=== PATIENT | male | born 1945 | race Caucasian/White ===

== ENCOUNTER 2022-06-20 09:46 | Emergency (ER) | payer MEDICARE, SELFPAY ==
[2022-06-20] VITALS (20 sets, daily range): BP systolic 138–165; BP diastolic 85–108; PULSE 66–79; RESP 18; TEMP 36.1–36.5; O2SAT 92–98; BMI 27.6
--- NOTE | 2022-06-20 09:55 | ED.GENADULT ---
HPI - General Adult General Time Seen by Provider: 09:55 Date Seen: 06/20/22 Chief complaint: Extremity Pain/Injury, Lower Stated complaint: fall Time Seen by Provider: 06/20/22 09:48 Source: patient and RN notes reviewed Mode of arrival: ambulatory Limitations: no limitations History of Present Illness HPI narrative: 77 year old male who comes in today with left leg injury. He slipped on the stairs and fell, did not hit his head or pass out, but had pain in his left lower leg and unable to walk, called EMS. Related Data Home Medications Medication Instructions Recorded Confirmed finasteride 5 mg tablet 5 mg PO DAILY 01/30/22 06/20/22 tamsulosin 0.4 mg capsule 0.4 mg PO DAILY 01/30/22 06/20/22 Previous Rx's Medication Instructions Recorded losartan 50 mg tablet 50 mg PO DAILY #90 tabs 01/30/22 sotalol 80 mg tablet 80 mg PO BID #180 tabs 01/30/22 apixaban 5 mg tablet 5 mg PO BID #180 tabs 06/05/22 valacyclovir 1 gram tablet 1,000 mg PO BID 7 days #14 tabs 06/05/22 Allergies Allergy/AdvReac Type Severity Reaction Status Date / Time Penicillins Allergy Verified 06/20/22 10:53 Review of Systems Status of ROS: Reports: 10 or more systems reviewed and unremarkable except as noted in History and below PFSH PFS Medical History Actinic keratosis Atrial fibrillation Epistaxis History of cardioversion HTN (hypertension) Surgical History History of knee surgery Family History Mother Breast cancer Cardiovascular disease Dementia Father Type 2 diabetes mellitus Social History Narrative: has 2 children no history of alcohol use nonsmoker Smoking Status: Never smoker Do you use any of these nicotine containing products: None Second hand tobacco smoke exposure: No How often do you have a drink containing alcohol: monthly or less AUDIT-C Alcohol total score: 1 Non-prescribed substance use: denies use service: No Exam Narrative: Exam Narrative: General: Well-developed and well-nourished, no acute distress Head: Atraumatic and normocephalic Eyes: Pupils are equal reactive, extraocular motions intact, conjunctiva clear ENT: External nose and ears are normal, posterior pharynx without erythema or exudate Neck: No midline cervical tenderness, full spontaneous range of motion the neck, trachea midline, no adenopathy Heart: Regular rate and rhythm no murmurs or thrills Lungs: Clear to auscultation bilaterally without wheezes or crackles Abdomen: Soft, nontender, nondistended with active bowel sounds Musculoskeletal: Swelling of the left lower leg with deformity of the distal 3rd. 1 cm laceration of the anterior medial lower leg. Distal sensation and pulses intact. Neurologic: Awake, alert, and oriented x3, no gross focal neurologic deficits, cranial nerves intact as tested Psych: Mood and affect are appropriate Skin: No rashes Const: Vital Signs, click to edit/add: Vital Signs - 24 hr 06/20/22 09:48 06/20/22 10:04 06/20/22 10:44 Temperature 97.0 F L Pulse Rate 67 75 Pulse Rate [Right Pulse Oximeter] 70 Respiratory Rate 18 Blood Pressure 153/92 H Blood Pressure [Ri ght Upper Arm] 156/100 H Pulse Oximetry 97 98 97 Oxygen Delivery Me thod Room Air 06/20/22 10:45 06/20/22 11:11 06/20/22 11:20 Temperature Pulse Rate 71 74 73 Pulse Rate [Right Pulse Oximeter] Respiratory Rate Blood Pressure Blood Pressure [Ri ght Upper Arm] Pulse Oximetry 96 96 96 Oxygen Delivery Me thod 06/20/22 11:22 06/20/22 11:40 06/20/22 11:43 Temperature 97.7 F Pulse Rate 73 73 77 Pulse Rate [Right Pulse Oximeter] Respiratory Rate Blood Pressure 138/85 152/85 H Blood Pressure [Ri ght Upper Arm] Pulse Oximetry 96 97 96 Oxygen Delivery Me thod 06/20/22 12:00 06/20/22 12:02 06/20/22 12:03 Temperature Pulse Rate 71 74 70 Pulse Rate [Right Pulse Oximeter] Respiratory Rate Blood Pressure 153/95 H Blood Pressure [Ri ght Upper Arm] Pulse Oximetry 94 96 95 Oxygen Delivery Me thod 06/20/22 12:22 06/20/22 12:25 06/20/22 12:40 Temperature Pulse Rate 66 77 Pulse Rate [Right Pulse Oximeter] Respiratory Rate Blood Pressure 151/93 H Blood Pressure [Ri ght Upper Arm] Pulse Oximetry 98 96 Oxygen Delivery Me thod 06/20/22 12:42 06/20/22 13:00 06/20/22 13:02 Temperature Pulse Rate 79 66 67 Pulse Rate [Right Pulse Oximeter] Respiratory Rate Blood Pressure 138/87 Blood Pressure [Ri ght Upper Arm] Pulse Oximetry 96 94 92 Oxygen Delivery Me thod 06/20/22 13:22 Temperature 97.7 F Pulse Rate Pulse Rate [Right Pulse Oximeter] Respiratory Rate Blood Pressure 165/97 H Blood Pressure [Ri ght Upper Arm] Pulse Oximetry Oxygen Delivery Me thod Course Course Hospital Course: Patient seen and examined on arrival. Fall today, obvious deformity of the left lower leg. There is also an overlying laceration in this area consistent with open fracture. Pressure was applied with improvement of bleeding. A Coban dressing was placed to apply pressure. The fracture was reduced with traction and a long-leg stirrup splint was placed. Will discuss with Orthopedics, antibiotics will be ordered. Reevaluation(s) Reevaluation #1: Ancef IV is ordered after discussion with Orthopedics. Will try to transfer the patient for further evaluation treatment. Patient requests [facility]. Will check with them to see if they have space and will take patient. Time: 10:41 Reevaluation #2: No beds at [facility]. Patient requests transfer to [facility] in [facility] as his spouse had hip replacements done there and was quite happy with her experience. Unfortunately, no beds available at [facility], no beds available at at [facility]. Time: 10:57 Reevaluation #3: Care discussed with Dr. Graham, [facility] who accepts the patient for transfer. Updated patient and spouse. Time: 11:44 Additional Reevaluation(s): 1:00 PM patient rechecked, resting comfortably. Dorsalis pedis pulse is still palpable on left, sensation intact and able the foot without pain. No obvious bleeding on splint or SHRUTI. Consultations Consultation #1: Care discussed with Dr. Rosado. Orthopedic surgery who feels patient should be transferred to a higher level of care for his surgery. Time: 10:30 Vital Signs Vital signs: Initial Vital Signs Temperature 97.0 F L 06/20/22 09:48 Temperature Source Temporal Artery Scan 06/20/22 09:48 Pulse Rate 70 06/20/22 09:48 Respiratory Rate 18 06/20/22 09:48 Blood Pressure 156/100 H 06/20/22 09:48 Blood Pressure Mean 118 06/20/22 09:48 Blood Pressure Position Sitting 06/20/22 09:48 Pulse Oximetry 97 06/20/22 09:48 Oxygen Delivery Method 06/20/22 09:48 Vital Signs Temperature 97.0 F L 06/20/22 09:48 Pulse Rate 70 06/20/22 09:48 Respiratory Rate 18 06/20/22 09:48 Blood Pressure 156/100 H 06/20/22 09:48 Pulse Oximetry 97 06/20/22 09:48 Oxygen Delivery Method 06/20/22 09:48 Temperature 97.7 F 06/20/22 13:22 Pulse Rate 67 06/20/22 13:02 Respiratory Rate 18 06/20/22 09:48 Blood Pressure 165/97 H 06/20/22 13:22 Pulse Oximetry 92 06/20/22 13:02 Oxygen Delivery Method 06/20/22 09:48 Medical Decision Making Medical Records Medical records reviewed: Yes I reviewed the patient's medical records Lab Data Lab results reviewed: Yes I reviewed the patient's lab results Labs: Lab Results 06/20/22 06/20/22 06/20/22 Range/Units 10:30 10:30 10:36 WBC 8.66 (4.50-11.00) K/uL RBC 4.67 (4.30-5.90) m/uL Hgb 14.5 (13.5-17.5) gm/dL Hct 43.3 (37.0-53.0) % MCV 93 (80-100) fL MCH 31 (26-34) pg MCHC 34 (32-36) gm/dL RDW Coeff of Rayo 13.1 (11.5-15.5) % Plt Count 198 (140-440) K/uL Neut % (Auto) 74.7 H (42.0-72.0) % Lymph % (Auto) 14.1 L (20-44) % [place] % (Auto) 7.5 (0.0-11.0) % Eos % (Auto) 3.3 (0.0-7.0) % Baso % (Auto) 0.3 (0.0-3.0) % Neut # (Auto) 6.50 (1.7-7.0) K/uL Lymph # (Auto) 1.20 (0.90-2.90) K/uL [place] # (Auto) 0.60 (0.00-0.90) K/UL Eos # (Auto) 0.29 (0.00-0.50) K/uL Baso # (Auto) 0.03 (0.00-0.30) K/uL Sodium 140 (135-149) mmol/L Potassium 4.1 (3.6-5.1) mmol/L Chloride 107 (96-114) mmol/L Carbon Dioxide 26 (20-32) mmol/L BUN 16 (7-30) mg/dL Creatinine 0.8 (0.5-1.5) mg/dL Estimated Creat Clear 70.78 Estimated GFR 91 ml/min Glucose 129 H (60-115) mg/dL Calcium 9.3 (8.4-10.6) mg/dL SARS-CoV-2 (PCR) Negative SARS-CoV-2 (Negative) Imaging Data Left tib-fib: Attestation: I have reviewed the pertinent imaging results. My impression: Displaced distal tibia and fibular fracture with proximal fibular fracture as well Radiologist's impression: Bones: There are transversely oriented, displaced fractures and distal tibial and fibular metadiaphysis. The distal tibial fracture fragment is displaced approximately 1 shaft width laterally and dorsally. There is also a minimally displaced oblique fracture of the proximal aspect of the fibula. Joint spaces: Advanced knee arthrosis. CT scan - head: Attestation: I have reviewed the pertinent imaging results. My impression: No acute hemorrhage ECG Data Attestation: I personally reviewed and interpreted this ECG as follows: Prior ECG tracings: not available for review Interpretation: Performed at 10:39 a.m. demonstrates sinus rhythm with sinus rhythm at a rate 73, no acute ST elevations or depressions, normal intervals, normal axis, no prior for comparison. Discharge Plan Discharge Clinical Impression: Open fracture of left fibula and tibia, Atrial fibrillation, Anticoagulant long-term use Patient Disposition: Xfer [facility] Prescriptions: No Action apixaban 5 mg tablet 5 mg PO BID Qty: 180 3RF valacyclovir 1 gram tablet 1,000 mg PO BID 7 Days Qty: 14 2RF Rx Instructions: For treatment of outbreak finasteride 5 mg tablet 5 mg PO DAILY tamsulosin 0.4 mg capsule 0.4 mg PO DAILY sotalol 80 mg tablet 80 mg PO BID Qty: 180 2RF losartan 50 mg tablet 50 mg PO DAILY Qty: 90 3RF Stand Alone [facility] Inst[facility]
--- NOTE | 2022-06-20 10:04 | XR_ITS ---
Patient: MARCELLO LABOY Facility:?[facility] Patient ID:?[id number] Site Patient ID:?[id number]. Site :?[id number] Study:?XRay-Extremity Left TIB/FIB 2V-06/20/2022 10:19:20 AM Ordering Physician:Scralett Benitez Final Report: Indication: Trauma. Technique: views. Comparison: None. Findings/Impression: Bones: There are transversely oriented, displaced fractures and distal tibial and fibular metadiaphysis. The distal tibial fracture fragment is displaced approximately 1 shaft width laterally and dorsally. There is also a minimally displaced oblique fracture of the proximal aspect of the fibula. Joint spaces: Advanced knee arthrosis. Soft tissues: Soft tissue swelling. Dictated by Reji Waller MD @ 06/20/2022 10:48:21 AM ----- ADDENDUM ----- TECHNIQUE: Two views left tibia and fibula. Indications: Pain Dictated by Reji Waller MD @ Jun 20 2022 10:48AM Signed by:?Reji Waller MD @06/20/2022 10:48:21 AM (Electronic Signature)
--- NOTE | 2022-06-20 10:42 | CRLHL7_ITS ---
For Patients: As a result of the Century Cures Act, medical imaging exams and procedure reports are released immediately into your electronic medical record. You may view this report before your referring provider. If you have questions, please contact your health care provider. INDICATION: Fall TECHNIQUE: CT head without contrast. COMPARISON: None FINDINGS: CSF spaces: Within normal limits for age. Brain parenchyma: The beltrán-white differentiation is normal. No sign of mass, hemorrhage, or midline shift. Skull base and calvarium: The visualized paranasal sinuses and mastoid air cells demonstrate no acute or significant findings. The visualized orbits are grossly unremarkable. No skull fractures. IMPRESSION: Unremarkable noncontrast head CT. Dictated by Hermilo Sharma MD @ 06/20/2022 11:44:30 AM Please note that all CT scans at this facility use dose modulation, iterative reconstruction, and/or weight-based dosing when appropriate to reduce radiation dose to as low as reasonably achievable. Dictated by: Hermilo Sharma MD @ 06/20/2022 11:44:34 (Electronically Signed)
[2022-06-20 10:50] LABS: Basophils Absolute Auto 0.03 K/uL (0.00-0.30); Basophils Percent Auto 0.3 % (0.0-3.0); Eosinophils Absolute Auto 0.29 K/uL (0.00-0.50); Eosinophils Percent Auto 3.3 % (0.0-7.0); Hematocrit 43.3 % (37.0-53.0); Hemoglobin* 14.5 gm/dL (13.5-17.5); Immature Granulocytes Abs Auto 0.01 K/uL (0.00-0.30); Immature Granulocytes Pct Auto 0.1 %; Lymphocytes Percent Auto 14.1 % (20-44); Mean Corpuscular HGB Conc 34 gm/dL (32-36); Mean Corpuscular Hemoglobin 31 pg (26-34); Mean Corpuscular Volume 93 fL (80-100); Monocytes Percent Auto 7.5 % (0.0-11.0); Neutrophils Percent Auto 74.7 % (42.0-72.0); Platelet Count* 198 K/uL (140-440); RDW Coefficient of Variation % 13.1 % (11.5-15.5); Red Blood Count 4.67 m/uL (4.30-5.90); White Blood Count* 8.66 K/uL (4.50-11.00)
[2022-06-20 10:52] LABS: Slide Review Reflex No
[2022-06-20] MEDS: LORazepam 2 MG/ML inj 0.3 MG IVP (10:56)
[2022-06-20] MEDS: CEFAZOLIN 1 GM in 0.9 % SODIUM CHLORIDE Mini-bag 100 ML IVPB (10:59)
[2022-06-20 11:10] LABS: Chloride* 107 mmol/L (96-114)
[2022-06-20 11:11] LABS: Potassium* 4.1 mmol/L (3.6-5.1); Sodium* 140 mmol/L (135-149)
[2022-06-20 11:13] LABS: Carbon Dioxide* 26 mmol/L (20-32); Creatinine* 0.8 mg/dL (0.5-1.5); Est. Creatinine Clearance* 70.78; Estimated Glomerular Filt Rate 91 ml/min
[2022-06-20 11:14] LABS: Blood Urea Nitrogen* 16 mg/dL (7-30); Calcium* 9.3 mg/dL (8.4-10.6); Glucose* 129 mg/dL (60-115)
[2022-06-20 11:57] LABS: SARS PCR* Negative SARS-CoV-2 (Negative)
--- NOTE | 2022-06-20 12:26 | PC.NURSE ---
Patient voided 225cc of clear urine. Continues to deny need for pain meds. Repositions self on cot. Toes are cold- warm sock applied. Has feeling in toes and able to wiggle them.
--- NOTE | 2022-06-20 14:13 | PC.NURSE ---
Patient transported to [facility]. Report given to allergy nurse. All questions answered. All belongings sent with patient and with . will wait for phone call from [facility]. Patient again refused pain medications for route.
== END 2022-06-20 14:16 | disposition home or self-care (01) ==
PROVIDERS: Emergency Provider Family Medicine; PCP Family Medicine
DX: S82.432B Displaced oblique fracture of shaft of left fibula, initial encounter for open fracture type I or II (principal); S82.302B Unspecified fracture of lower end of left tibia, initial encounter for open fracture type I or II; W10.9XXA Fall (on) (from) unspecified stairs and steps, initial encounter; Z79.01 Long term (current) use of anticoagulants
CPT/HCPCS: 29515; 36415; 70450; 73590; 80048; 85025; 87635; 93005; 96365; 96375; 99284; 99285; J0690; J2060

== ENCOUNTER 2023-09-10 10:39 | Emergency (ER) | payer MEDICARE, SELFPAY ==
[2023-09-10 10:51] VITALS: BP 168/78; PULSE 68; RESP 18; TEMP 36.6; O2SAT 97
--- NOTE | 2023-09-10 12:12 | ED.GENADULT ---
HPI - General Adult General Chief complaint: Epistaxis/Nosebleed Stated complaint: bloody nose Time Seen by Provider: 09/10/23 12:12 History of Present Illness HPI narrative: Patient had a nose bleed that started this morning around 9am and lasted for about 20-25 minutes. He is on Eliquis. He is not actively bleeding. He called clinic and was told to come to ED. Flying on a plane tomorrow and wants to make sure that it is ok to 78-year-old man presenting to the emergency department with concern of bloody nose. Actually was bleeding more last week. Does have a history of cautery once? prior to that. Managed to gain control this morning with pressure. Had called into the clinic and was told to come to the emergency department. They are flying tomorrow and want to be sure that it is OK to fly. He's not feeling lightheaded or short of breath. No particular trauma, though acknowledges that picking in the past can be a trigger. Takes Eliquis. Related Data Home Medications Medication Instructions Recorded Confirmed finasteride 5 mg tablet 5 mg PO DAILY 01/30/22 08/20/23 tamsulosin 0.4 mg capsule 0.4 mg PO DAILY 01/30/22 08/20/23 Previous Rx's Medication Instructions Recorded losartan 50 mg tablet 50 mg PO DAILY #90 tabs 02/12/23 sotalol 80 mg tablet 80 mg PO BID #180 tabs 02/12/23 apixaban 5 mg tablet (Eliquis) 5 mg PO BID #180 tabs 08/20/23 Allergies Allergy/AdvReac Type Severity Reaction Status Date / Time Penicillins Allergy Verified 08/20/23 08:39 Review of Systems Status of ROS: Reports: 6 or more systems reviewed and unremarkable except as noted in History and below [facility] Medical History Actinic keratosis ?L57.0 - Actinic keratosis (ICD-10) History of cardioversion ?Z98.890 - Other specified postprocedural states (ICD-10) Epistaxis ?R04.0 - Epistaxis (ICD-10) Surgical History H/O cardiac radiofrequency ablation ?Z98.890 - Other specified postprocedural states (ICD-10) History of knee surgery ?Z98.890 - Other specified postprocedural states (ICD-10) Family History Mother Breast cancer Cardiovascular disease Dementia Father Type 2 diabetes mellitus Social History Narrative: has 2 children no history of alcohol use nonsmoker What is your current living situation?: I presently have a place to live In the past 12 months, utilities in danger of being shut off: no In past 12 months, lack of transportation kept you from medical appts, meetings, work, or getting things needed for daily living: no In the past 12 mos, have been you worried that your food would run out before you had money to buy more?: never true In the past 12 mos, the food you bought just didn't last and you didn't have money to buy more?: never true Smoking Status: Never smoker Do you use any of these nicotine containing products: None Second hand tobacco smoke exposure: No How often do you have a drink containing alcohol: monthly or less AUDIT-C Alcohol total score: 1 Non-prescribed substance use: denies use How often does anyone, including family, friends and others, physically hurt you: never How often does anyone, including family, friends and others, insult or talk down to you: never How often does anyone, including family, friends and others, threaten you with harm: never How often does anyone, including family, friends and others, scream or curse at you: never Little interest or pleasure in doing things: not at all Feeling down, depressed, or hopeless: not at all service: No Exam Narrative: Exam Narrative: Very pleasant with good energy. Breathing easily. Trace dried blood at both nares. There is no posterior oropharyngeal bleeding. Blood pressure is noted to be a little elevated on arrival. The site of bleeding appears to have been on the left medial nasal septum relatively anterior. Singular point it looks to be lightly clotting. Const: Vital Signs, click to edit/add: Vital Signs - 24 hr 09/10/23 10:51 Temperature 97.9 F Pulse Rate [Pulse Oximeter] 68 Respiratory Rate 18 Blood Pressure [Ri ght Upper Arm] 168/78 H Pulse Oximetry 97 Oxygen Delivery Me thod Room Air Documenting provider has reviewed patient's vital signs: yes Course Vital Signs Vital signs: Initial Vital Signs Temperature 97.9 F 09/10/23 10:51 Temperature Source Temporal Artery Scan 09/10/23 10:51 Pulse Rate 68 09/10/23 10:51 Respiratory Rate 18 09/10/23 10:51 Blood Pressure 168/78 H 09/10/23 10:51 Blood Pressure Mean 108 H 09/10/23 10:51 Blood Pressure Position Sitting 09/10/23 10:51 Pulse Oximetry 97 09/10/23 10:51 Oxygen Delivery Method Room Air 09/10/23 10:51 Vital Signs Temperature 97.9 F 09/10/23 10:51 Pulse Rate 68 09/10/23 10:51 Respiratory Rate 18 09/10/23 10:51 Blood Pressure 168/78 H 09/10/23 10:51 Pulse Oximetry 97 09/10/23 10:51 Oxygen Delivery Method Room Air 09/10/23 10:51 Temperature 97.9 F 09/10/23 10:51 Pulse Rate 68 09/10/23 10:51 Respiratory Rate 18 09/10/23 10:51 Blood Pressure 168/78 H 09/10/23 10:51 Pulse Oximetry 97 09/10/23 10:51 Oxygen Delivery Method Room Air 09/10/23 10:51 Medications Administered Medications: Discontinued Medications Generic Name Dose Route Start Last Admin Trade Name Freq PRN Reason Stop Dose Admin Cocaine HCl 4 ml 09/10/23 12:44 09/10/23 13:20 Cocaine Hcl 4 % 4 Ml Solution NOSTRIL-R 09/10/23 12:45 4 ml ONCE ONE Administration Medical Decision Making MDM Narrative Medical decision making narrative: I propose a time of observation. Upon reassessment control of bleeding still present. There is concern, though that this will break loose, expressed by patient and spouse. I am a little disinclined to disturb as seems to be stabilized. I do agree to go ahead and cauterize. Applying nitro stick, this does though release more bleeding. Packed with cocaine-soaked cotton balls and nasal clamped. Period of time again then reassessed, and looks to have formed a nice cauterized clot in this area noted with removal of cotton balls. Monitored again for a time without further bleeding See patient discharge plan for further discussion. Discharged with cotton balls and nose clamp and white petroleum jelly. Discharge Plan Discharge Clinical Impression: Anterior epistaxis, Chronic anticoagulation Patient Disposition: Home w/ Parent or Adult Condition: Improved Additional Instructions: In general I would try not to disturb this clot over the next 48 hours. I suppose that even includes placing the white petroleum jelly or that stuff you have. Probably would be okay very carefully placed? Otherwise sleep under the mist of a cool mist humidifier. After a few days do place white petroleum jelly or the moisturizer you already have into your nose multiple times a day and especially before bed. Stay well-hydrated. Maintain good control of your blood pressure chronically. If begins to bleed again, can place oxymetazoline-soaked cotton balls into affected or both nostrils and then place the nose clamp. If can not get control of bleeding in an hour or really bleeding profusely, be seen. Safe travels. Have fun. Prescriptions: No Action Eliquis 5 mg tablet 5 mg PO BID Qty: 180 0RF finasteride 5 mg tablet 5 mg PO DAILY tamsulosin 0.4 mg capsule 0.4 mg PO DAILY losartan 50 mg tablet 50 mg PO DAILY Qty: 90 3RF sotalol 80 mg tablet 80 mg PO BID Qty: 180 3RF Follow Up/Referrals: Kellie Atkinson DO [Primary Care Provider] - Stand Alone Forms: [facility] Info Instructions Procedures Epistaxis Control Time Out Performed: No Nostril: Yes left Nose prepped with: Yes cocaine 4% Direct inspection: Yes anterior source identified Direct inspection method: Yes otoscope Epistaxis treatment: Yes silver nitrate cautery Results of treatment: Yes bleeding controlled Estimated blood loss (if any): other (specify) (1 ml) Complications: Yes none Conclusion: patient tolerated procedure
[2023-09-10] MEDS: COCAINE HCL 4 % 4 ML SOLUTION NOSTRIL-R (13:20)
== END 2023-09-10 14:18 | disposition home or self-care (01) ==
PROVIDERS: Emergency Provider Family Medicine; PCP Family Medicine
DX: R04.0 Epistaxis (principal)
CPT/HCPCS: 30901; 99283; 99284; A9270

== ENCOUNTER 2023-11-29 13:38 | Outpatient (REF) | payer MEDICARE, SELFPAY ==
[2023-11-29 16:47] LABS: Cholesterol* 137 mg/dL (90-199)
[2023-11-29 16:48] LABS: HDL Cholesterol* 62 mg/dL (>=40); LDL Cholesterol Calculated 63 mg/dL (<100); Triglycerides* 59 mg/dL (40-149)
== END 2023-11-29 13:39 | disposition home or self-care (01) ==
LOC: NPINS 13:38
PROVIDERS: PCP Family Medicine; Visit Provider Internal Medicine
DX: I48.91 Unspecified atrial fibrillation (principal); I10 Essential (primary) hypertension; I49.8 Other specified cardiac arrhythmias; Z79.01 Long term (current) use of anticoagulants; Z13.220 Encounter for screening for lipoid disorders
CPT/HCPCS: 80061

== ENCOUNTER 2024-04-14 10:30 | Outpatient (CLI) | payer MEDICARE, SELFPAY | END 2024-04-14 10:31 | disposition home or self-care (01) | PROVIDERS: PCP Family Medicine; Visit Provider Family Medicine | DX: Z00.00 Encounter for general adult medical examination without abnormal findings (principal); I10 Essential (primary) hypertension; I48.91 Unspecified atrial fibrillation | CPT/HCPCS: 80053; 82043; 82570 ==

== ENCOUNTER 2025-04-20 10:48 | Outpatient (CLI) | payer MEDICARE, SELFPAY | END 2025-04-20 10:49 | disposition home or self-care (01) | PROVIDERS: PCP Family Medicine; Visit Provider Family Medicine | DX: I10 Essential (primary) hypertension (principal); I48.11 Longstanding persistent atrial fibrillation | CPT/HCPCS: 80053; 82043; 82570 ==